=== PATIENT | male | born 1970 | race Caucasian/White ===

== ENCOUNTER 2023-12-14 12:43 | Outpatient (CLI) | payer BC, SELFPAY ==
[2023-12-14 13:29] LABS: Anion Gap 6 mmol/L (4-12); Blood Urea Nitrogen 18 mg/dL (9-20); Calcium 9.7 mg/dL (8.4-10.2); Carbon Dioxide 27 mmol/L (22-30); Chloride 101 mmol/L (98-107); Estimated Glomerular Filt Rate > 60; Glucose 225 mg/dL (65-110); Potassium 4.4 mmol/L (3.4-5.0); Sodium 134 mmol/L (137-145)
== END 2023-12-14 12:44 | disposition home or self-care (01) ==
LOC: ANHSURGERY 12:46
PROVIDERS: Anesthesiology; Visit Provider Surgery
DX: K40.90 Unilateral inguinal hernia, without obstruction or gangrene, not specified as recurrent (principal); E10.9 Type 1 diabetes mellitus without complications; Z01.818 Encounter for other preprocedural examination
CPT/HCPCS: 36415; 80048; 86850; 86900; 86901

== ENCOUNTER 2023-12-16 01:00 | Day surgery (SDC) | payer BC, SELFPAY ==
[2023-12-13 13:17] VITALS: BMI 29.7
--- NOTE | 2023-12-13 13:25 | PC.NURSE ---
Report to the Outpatient Waiting Room, entrance under the green pavilion located off [facility], at time _1000_ on date _[id number]_. Planned Procedure Time: _1200_. Time changes happen often and if your time is changed the preop area will call you the afternoon before. - You and your visitor will be asked to self-screen and do not enter if you have any COVID symptoms. - A mask is optional within the hospital at this time. Patients may have clear liquids (water, carbonated beverages, clear teas, apple juice) until 3 hours prior to surgery with a maximum of 20 ounces. - No food from midnight until time of surgery Take the following medications with a SIP of water the morning of surgery: ___Contiue insulin pump. DO NOT STOP ANY OF YOUR OTHER PRESCRIPTION MEDICATIONS PRIOR TO SURGERY ?EXCEPT THE FOLLOWING Medications to discontinue per physician ____Multivitamin Date to take last dose__Stop today. Please no make-up, nail afghan, hairspray, perfume, deodorant, or body powder the day of surgery. No jewelry (including any body piercings) or valuables the day of surgery, leave them at home. Please take a shower or bath the night before, or the morning of, surgery with an antibacterial soap. Wear comfortable, loose fitting clothing. - Jewelry must be removed prior to entering the operating room. Rings and piercings that are not removed may be cut off. - The hospital will not accept responsibility for valuables. - Please leave all valuables, including medications, at home the day of surgery. If you are going home after surgery, a licensed solid waste truck driver must drive you home. - NO public transportation without another adult if you receive anesthesia. - We recommend that an adult stay with you for 24 hours following discharge. - We also recommend that you do not drive, make important decision, drink alcoholic beverages, or take any drugs that were not prescribed by your health care provider for at least 24 hours after your discharge time. Follow any additional instructions given to you from your surgeon. If you or anyone in your household have experienced Covid symptoms in the past week, please notify your surgeon or the nurse liaison at the phone number below for possible testing. Telephone instructions given to __Audie and Yani___and asked if any additional questions and then verbalized understanding. Patient advised to call surgeon office or pre surgery nurse liaison [phone] if any additional questions.
[2023-12-16] VITALS (10 sets, daily range): BP systolic 108–144; BP diastolic 62–86; PULSE 70–83; RESP 14–20; TEMP 36.2–36.7; O2SAT 98–100
--- NOTE | 2023-12-16 10:57 | WPDHPUPDATE1 ---
History and Physical Update Update Date/Time: 12/16/23 10:57 History and Physical has been reviewed, including an updated exam of the patient. There are NO changes in the patient's condition. Risks, benefits, and alternatives have been discussed and questions answered. Patient agrees to proceed with procedure.
[2023-12-16] MEDS: LACTATED RINGERS 1,000 ML 30 ML IV CONT ×3 (11:00→16:14)
--- NOTE | 2023-12-16 11:25 | P.PNAN_ITS ---
Anes - Initial Pre Proc Eval Procedure: Operation Date: 12/16/23 12:00 Proposed Procedures p Robotic Assisted Laparoscopic Left Inguinal Hernia Repair with Mesh, Possible Open - Martell Peters MD Date/Time: 12/16/23 11:25 Surgeon: Martell Peters MD Pre Op Diagnosis: Left Inguinal Hernia Patient Data Age: 53 Gender: M Height: 1.78 m Weight: 94 kg Allergies Allergy/AdvReac Type Severity Reaction Status Date / Time No Known Allergies Allergy Verified 12/13/23 13:15 Home Medications Medication Instructions Recorded Confirmed Type evolocumab 140 mg/mL subcutaneous 140 mg subcut WEEKLY 12/13/23 12/13/23 History pen injector (Repatha SureClick) insulin lispro-aabc 100 unit/mL 1 sliding scale dose subcut 12/13/23 12/13/23 History subcutaneous pen (Lyumjev KwikPen USEASDIRECTD U-100 Insulin) lisinopril 40 mg tablet 40 mg PO DAILY 12/13/23 12/13/23 History multivitamin (Daily Vitamin 1 tablet PO DAILY 12/13/23 12/13/23 History Formula tablet) Patient hx anesthesia problems: none Family hx anesthesia problems: none Results Review: All pre-operative results and documents have been reviewed as part of the pre- operative evaluation. [facility] Past Medical History Medical History (Updated 12/16/23 @ 11:27 by Chandler Tolbert DO) Celiac disease HTN (hypertension) Insulin pump in place Type 1 diabetes Social History Social History (Updated 12/13/23 @ 12:14 by Mary Ann Billings) Smoking status: Never smoker Substance use: never Living arrangements: with family Spiritual care concerns: No Anes - Eval Final PreProcedure Day of Procedure 12/16/23 11:25 Patient weight: overweight Heart: regular rate and rhythm Lungs: clear to auscultation Airway: Mallampati scale class III Neurological: alert and oriented Last oral intake: >/= 8 hours ASA classification: III Emergent: no Anesthetic plan: proceed Anesthesia type and monitoring: general ETT and standard monitoring Results Review: All pre-operative results and documents have been reviewed as part of the pre- operative evaluation. Informed Consent: The patient's anesthetic plan and its attendant risks and benefits were discussed with the patient/family/POA. Questions were solicited and answers provided to the satisfaction of the patient/family/POA.
[2023-12-16 11:40] LABS: Glucose Point of Care 114 mg/dl (65-105)
[2023-12-16] MEDS: KETOROLAC 15 MG/ML VIAL (*BKC) IV PUSH ×2 (12:13→14:08)
[2023-12-16] MEDS: ceFAZolin 2 GM/D5W 50 ML 2 GM/50 ML BAG IVPB (12:34)
[2023-12-16] MEDS: LIDO 1%/EPINEPHRINE 1:100,000 50 ML VIAL 30 ML INFILTRATE (13:06)
[2023-12-16] MEDS: BUPivacaine HCL 0.5% 10 ML AMP 30 ML INFILTRATE (13:06)
[2023-12-16 14:41] LABS: Glucose Point of Care 104 mg/dl (65-105)
--- NOTE | 2023-12-16 14:50 | W.PM.PROC2 ---
Procedure Note - Detailed Date of Procedure 12/16/23 Pre-op Diagnosis Left Inguinal Hernia Post-op Diagnosis Same (Indirect left inguinal hernia) Procedure Performed Robotic assisted laparoscopic left inguinal hernia repair with Bard 3D mid weight mesh Surgeon Martell Peters MD Professor Of Biochemistry AMY Marshall Anesthesia General Indications Patient is a 53-year-old gentleman who presented with complaints of having several week history of left groin pain associated with a new left groin bulge. He presents now for a robotic assisted laparoscopic left inguinal hernia repair with mesh. Findings Patient moderately large indirect left inguinal hernia. No evidence of a right inguinal hernia was seen laparoscopically. There was no incarcerated bowel. There was a moderately large left cord lipoma which was removed during the surgery. Description of Procedure After informed consent was obtained patient brought to the operating room was placed supine position and general endotracheal anesthesia was administered. The abdomen and bilateral groin regions were then prepped and draped usual sterile fashion. A time-out was then performed correctly identifying the patient as well as procedure to be performed. He was given perioperative IV antibiotics and the site marking was verified. I started him seeing a 10mm left upper quadrant Optiview port with a direct optical insertion. Once inside the abdomen insufflated to adequate pneumoperitoneum of 15mmHg of CO2. The patient was then placed into a 15degree Trendelenburg position to allow the bowel to fall out of the pelvis. Then looking into the pelvis I could see there was a indirect left inguinal hernia defect. No evidence of a direct defect was seen. No evidence of a right inguinal hernia was seen. I then had additional robotic trocar ports were placed in the abdomen direct visualization. The ImmunotE[employer] Glenys robot was then brought to the patient's bedside and docked and the robotic arms were attached the robotic ports. I then scrubbed out the procedure robotic console. Robotic instruments advanced into the abdomen under direct visualization. I then proceeded to make a preperitoneal flap starting just anterior and superior to the left anterior superior iliac spine. The flap was created across the lower abdominal wall to the midline where the left medial umbilical ligament was divided. I continued dissection distally the preperitoneal plane and identified inferior epigastric vessels. The defect was lateral to the inferior epigastric vessels going through the internal ring so this was an indirect left inguinal hernia. I then very carefully dissected the indirect inguinal hernia sac out of the inguinal canal. the vas deferens and testicular vessels from the hernia sac and preserve these without injury. I then dissected medially down to the pubic tubercle on the left side and then dissected across the midline past the pubic symphysis. I then dissected down into the space of Retzius for couple cm. There was a cord lipoma which was dissected free the other cord structures as well and left in the left lower quadrant the abdomen to be removed at the end the procedure. I then proceeded to dissect the flap proximally until I was up onto the psoas muscle and I could see that the vas deferens and testicular vessels on the left side were diverging. Once I had the flap dissected proximal so that I felt that the mesh did not curl up with closing the peritoneum I then measured the space and I felt a [id number] piece of Bard 3D mid weight mesh oriented for the left groin would be the proper mesh to use. The mesh was then placed into the abdomen through the bedside assistant restaurant general manager port in the left upper quadrant. The mesh was then oriented into the dissected space in the left groin region with the mesh overlapping the pubic tubercle by several by least a couple of cm. The lower edge of the mesh extended down into the space of Retzius. I then secur
== END 2023-12-16 16:55 | disposition home or self-care (01) ==
PROVIDERS: PCP Internal Medicine; Visit Provider Surgery
PROC: 8E0Y4CZ Robotic Assisted Procedure of Lower Extremity, Percutaneous Endoscopic Approach (ICD-10-PCS; CPT 49650; principal; 2023-12-16 12:00)
DX: K40.90 Unilateral inguinal hernia, without obstruction or gangrene, not specified as recurrent (principal); D17.6 Benign lipomatous neoplasm of spermatic cord; E10.9 Type 1 diabetes mellitus without complications; I10 Essential (primary) hypertension; K90.0 Celiac disease; Z79.4 Long term (current) use of insulin; Z96.41 Presence of insulin pump (external) (internal)
CPT/HCPCS: 49650; S2900; 36415; 80048; 82948; 86850; 86900; 86901; C1781; J0330; J0690; J1100; J1170; J1885; J2250; J2405; J2704; J3010; J7120

== ENCOUNTER 2024-07-10 15:43 | Outpatient (CLI) | payer BC, SELFPAY ==
[2024-07-10 16:29] LABS: Hematocrit 40.7 % (42.0-52.0); Hemoglobin 14.1 g/dL (14.0-18.0); Mean Corpuscular HGB Conc 34.6 g/dl (32-36); Mean Corpuscular Hemoglobin 29.7 pg (26-34); Mean Corpuscular Volume 85.7 fl (80-100); Mean Platelet Volume 10.3 fl (7.4-10.4); Platelet Count Result 246 k/mm3 (150-375); Red Blood Count 4.75 M/mm3 (4.6-6.20); Red Cell Distribution Width 12.6 % (11.5-14.5); White Blood Count 7.6 K/mm3 (4.5-10.0)
[2024-07-10 17:01] LABS: Alanine Aminotransferase 29 U/L (6-50); Albumin Level 4.3 g/dL (3.5-5.1); Alkaline Phosphatase 64 U/L (38-126); Anion Gap 6 mmol/L (4-12); Aspartate Amino Transferase 38 U/L (17-59); Bilirubin,Total 0.6 mg/dL (0.2-1.3); Blood Urea Nitrogen 17 mg/dL (9-20); Carbon Dioxide 28 mmol/L (22-30); Chloride 100 mmol/L (98-107); Estimated Glomerular Filt Rate > 60; Glucose 175 mg/dL (65-110); Potassium 4.2 mmol/L (3.4-5.0); Sodium 134 mmol/L (137-145)
[2024-07-14 04:13] LABS: Immunoglobulin A 179 mg/dL (47-310); TTG IGA AB <1.0 U/mL
== END 2024-07-10 15:44 | disposition home or self-care (01) ==
LOC: ANHLAB 15:44
PROVIDERS: PCP Family Medicine; Visit Provider Nurse Practitioner Family
DX: K90.0 Celiac disease (principal); R19.4 Change in bowel habit
CPT/HCPCS: 36415; 80053; 82784; 85027; 86364

== ENCOUNTER 2024-07-11 09:29 | Outpatient (CLI) | payer BC, SELFPAY ==
[2024-07-17 14:08] LABS: Pancreatic Elastase, Stool 91 mcg/g (>200)
[2024-07-19 17:48] LABS: Calprotectin, Stool 19 mcg/g
== END 2024-07-11 09:30 | disposition home or self-care (01) ==
LOC: ANHLAB 09:30
PROVIDERS: PCP Family Medicine; Visit Provider Nurse Practitioner Family
DX: R19.4 Change in bowel habit (principal); K90.0 Celiac disease; E10.9 Type 1 diabetes mellitus without complications
CPT/HCPCS: 82653; 83993

== ENCOUNTER 2024-07-20 07:46 | Outpatient (CLI) | payer BC, SELFPAY ==
[2024-07-20 08:25] LABS: Iron 112 ug/dL (49-181)
[2024-07-20 08:40] LABS: Percent Iron Saturation 32 % (20-50)
[2024-07-20 09:21] LABS: Folic Acid 14.1 ng/mL (2.76->20)
[2024-07-20 09:26] LABS: Vitamin D 25 Hydroxy 49.8 ng/mL
== END 2024-07-20 07:47 | disposition home or self-care (01) ==
LOC: ANHLAB 07:47
PROVIDERS: PCP Family Medicine; Visit Provider Nurse Practitioner Family
DX: K90.0 Celiac disease (principal)
CPT/HCPCS: 36415; 82306; 82607; 82728; 82746; 83540; 83550; 84590

== ENCOUNTER 2024-07-26 00:46 | Day surgery (SDC) | payer BC, SELFPAY ==
[2024-07-17 12:26] VITALS: BMI 28.7
[2024-07-26 06:28] VITALS: BP 116/74; PULSE 77; RESP 18; TEMP 36.1; O2SAT 100; BMI 28.3
[2024-07-26] MEDS: LACTATED RINGERS 1,000 ML 150 ML IV CONT (06:36)
--- NOTE | 2024-07-26 07:14 | WPDHPUPDATE1 ---
History and Physical Update Update Date/Time: 07/26/24 07:14 History and Physical has been reviewed, including an updated exam of the patient. There are NO changes in the patient's condition. Risks, benefits, and alternatives have been discussed and questions answered. Patient agrees to proceed with procedure.
--- NOTE | 2024-07-26 07:19 | P.PNAN_ITS ---
Anes - Initial Pre Proc Eval Procedure: Operation Date: 07/26/24 07:30 Proposed Procedures p Colonoscopy - Zane Stout MD Date/Time: 07/26/24 07:19 Surgeon: Zane Stout MD Pre Op Diagnosis: change in Bowel habit, family dx of neoplasm Patient Data Age: 53 Gender: M Height: 1.78 m Weight: 89.5 kg Last Vital Signs Temp 96.9 F L 07/26/24 06:28 Pulse 77 07/26/24 06:28 Resp 18 07/26/24 06:28 BP 116/74 07/26/24 06:28 Pulse Ox 100 07/26/24 06:28 O2 Del Method Room Air 07/26/24 06:28 Allergies Allergy/AdvReac Type Severity Reaction Status Date / Time No Known Allergies Allergy Verified 07/26/24 06:24 Home Medications ?Medication ?Instructions ?Recorded ?Confirmed ?Type insulin lispro-aabc 100 unit/mL 1 sliding scale dose subcut 12/13/23 07/26/24 History subcutaneous pen (Laure Cruz USEASDIRECTD U-100 Insulin) lisinopril 40 mg tablet 20 mg PO BID 12/13/23 07/26/24 History multivitamin (Daily Vitamin 1 tablet PO DAILY 12/13/23 07/26/24 History Formula tablet) evolocumab 140 mg/mL subcutaneous 140 mg subcut .every 2 weeks #6 mL 04/17/24 07/26/24 Rx pen injector (Repkalyani Barkelyick) dicyclomine 10 mg capsule 10 mg PO TID PRN abdominal pain 07/10/24 07/17/24 Rx #30 caps aenzub-kjvrzqvn-nqnkycf 1 cap PO .COMPLEX #300 caps 07/19/24 07/26/24 Rx 36,000-114,000-180,000 unit capsule,delay rel (Creon) bwynoo-bxxxwgqc-kvzvrce 36,000-114,000- 180,000 unit 07/20/24 07/26/24 Sample 36,000-114,000-180,000 unit Capsule,Delayed Release(Dr/Ec)#2 capsule,delay rel (Creon) Samples Patient hx anesthesia problems: none Family hx anesthesia problems: none Results Review: All pre-operative results and documents have been reviewed as part of the pre- operative evaluation. [facility] Past Medical History Medical History (Updated 07/10/24 @ 15:35 by ODALYS Azevedo) Left sided abdominal pain Change in bowel habits Insulin pump in place HTN (hypertension) Celiac disease Type 1 diabetes Surgical History Surgical History H/O left inguinal hernia repair 12/16/23 Robotic assisted laparoscopic left inguinal hernia repair with Bard 3D mid weight mesh Family History Family History Mother Heart disease Hypertension Father Cancer Sibling Hypertension Grandparent Cerebrovascular accident Social History Social History Smoking status: Never smoker Substance use: never Substance use type: does not use Do You Feel Safe in your Home?: Yes Lack of Transportation: No Lack of Food: Never True Current Housing: I Have Housing Concerned About Future Housing: No Difficulty Paying Gas/Electric Bills: No Difficulty Paying for Meds: No Currently Unemployed: No Education: Decline to Answer Difficulty w/ Childcare or Family Care: No Living arrangements: with family Occupation/Education: occupation Gender identity (if verbalized by the patient): Male Sexual Orientation (if Verbalized by the Patient): Straight or Heterosexual Spiritual care concerns: No Anes - Eval Final PreProcedure Day of Procedure 07/26/24 07:19 Patient weight: normal Heart: regular rate and rhythm Lungs: clear to auscultation Airway: Mallampati scale class II Neurological: alert and oriented Last oral intake: >/= 8 hours ASA classification: III Emergent: no Anesthetic plan: proceed Results Review: All pre-operative results and documents have been reviewed as part of the pre- operative evaluation. Informed Consent: The patient's anesthetic plan and its attendant risks and benefits were discussed with the patient/family/POA. Questions were solicited and answers provided to the satisfaction of the patient/family/POA.
[2024-07-26 07:42] VITALS: BP 112/71; PULSE 66; RESP 19; O2SAT 100
[2024-07-26 07:52] VITALS: BP 108/60; PULSE 61; RESP 17; O2SAT 100
[2024-07-26 08:02] VITALS: BP 110/65; PULSE 65; RESP 19; O2SAT 100
== END 2024-07-26 08:12 | disposition home or self-care (01) ==
PROVIDERS: PCP Family Medicine; Referring Provider Nurse Practitioner Family; Visit Provider Internal Medicine Gastroenterology
PROC: 0DJD8ZZ Inspection of Lower Intestinal Tract, Via Natural or Artificial Opening Endoscopic (ICD-10-PCS; CPT 45378; principal; 2024-07-26 07:30)
DX: R19.4 Change in bowel habit (principal); K64.8 Other hemorrhoids; R10.9 Unspecified abdominal pain; K90.0 Celiac disease; Z80.0 Family history of malignant neoplasm of digestive organs; I10 Essential (primary) hypertension; E10.9 Type 1 diabetes mellitus without complications; E78.5 Hyperlipidemia, unspecified; Z96.41 Presence of insulin pump (external) (internal); Z79.4 Long term (current) use of insulin; Z83.79 Family history of other diseases of the digestive system
CPT/HCPCS: 45378; J2003; J2704; J7120